=== PATIENT | male | born 2005 | race Native Hawaiian/Other Pacific Islander ===

== ENCOUNTER 2023-05-05 11:11 | Outpatient (CLI) | payer OTHER, SELFPAY ==
[2023-05-05 17:31] LABS: SARS PCR* Negative SARS-CoV-2 (Negative)
== END 2023-05-05 11:12 | disposition home or self-care (01) ==
LOC: LONREF 11:11
PROVIDERS: PCP Family Medicine; Visit Provider Family Medicine
DX: J02.9 Acute pharyngitis, unspecified (principal); J37.0 Chronic laryngitis; Z20.822 Contact with and (suspected) exposure to COVID-19
CPT/HCPCS: 87635